=== PATIENT | male | born 1955 | race Caucasian/White ===

== ENCOUNTER 2016-06-16 10:59 | Emergency (ER) | payer BC ==
[~2016-06-16] VITALS: Ht 188 cm; Wt 112.0 kg
[2016-06-16 11:16] VITALS: BP 105/74; PULSE 97; RESP 16; TEMP 99.2; O2SAT 98
--- NOTE | 2016-06-16 14:28 | PD ---
HPI . Lower abdominal pain Chief Complaint: GI Complaint Time Seen by Provider: 14:19 Travel History International Travel<30 days: No Contact w/Intl Traveler<30days: No Traveled to known affect area: No History of Present Illness HPI Patient presents with lower abdominal pain and constipation for 3 days. He states he normally has several bowel movements per day but has not had one in 3 days. He reports suddenly worsening lower abdominal pain. He states that he has taken Metamucil and a stool softener at home with no relief of the constipation. He denies any associated fever. He denies anorexia. He denies any urinary symptoms. [id number]: Lower abdomen DURATION: 3 days TIMING: Gradually worsening MODIFYING FACTORS: Unrelieved by Metamucil and stool softener ASSOCIATED SYMPTOMS: Constipation PFSH Past Medical History Diabetes: Yes (TYPE 2) Social History Tobacco Use: No Allergies-Medications (Allergen,Severity, Reaction): Coded Allergies: No Known Allergies (Unverified , 06/16/16) Reported Meds & Prescriptions Reported Meds & Active Scripts Active Reported Metformin (Metformin HCl) Unknown Strength Tab Unknown Dose PO BIDPC With meals Review of Systems Except as stated in HPI: all other systems reviewed are Neg General / Constitutional: No: Fever, Chills Cardiovascular: No: Chest Pain or Discomfort Respiratory: No: Shortness of Breath Gastrointestinal: Positive: Abdominal Pain, Constipation, No: Nausea, Vomiting , Diarrhea, Loss of Appetite Genitourinary: No: Urgency, Frequency, Dysuria Physical Exam Narrative GENERAL: Healthy-appearing man in no acute distress. SKIN: Warm and dry. HEAD: Atraumatic. Normocephalic. EYES: Pupils equal and round. ENT: No nasal bleeding or discharge. Mucous membranes pink and moist. NECK: Trachea midline. Neck supple. CARDIOVASCULAR: Regular rate and rhythm. Heart sounds normal. RESPIRATORY: No accessory muscle use. Lungs clear. GASTROINTESTINAL: Abdomen soft, non-tender, nondistended. MUSCULOSKELETAL: No obvious deformities. No edema. NEUROLOGICAL: Awake and alert. No obvious cranial nerve deficits. Motor grossly within normal limits. Normal speech. PSYCHIATRIC: Appropriate mood and affect; insight and judgment normal. Data Data Last Documented VS Vital Signs Date Time Temp Pulse Resp B/P Pulse Ox O2 Delivery O2 Flow Rate FiO2 06/16/16 16:44 96 16 110/59 96 06/16/16 15:53 Room Air 06/16/16 11:16 99.2 Orders Complete Blood Count With Diff (06/16/16 14:24) Comprehensive Metabolic Panel (06/16/16 14:24) Urinalysis - C+S If Indicated (06/16/16 14:24) Abdomen, Flat & Upright (06/16/16 ) Iv Access Insert/Monitor (06/16/16 14:24) Ecg Monitoring (06/16/16 14:24) Oximetry (06/16/16 14:24) Sodium Chloride 0.9% Flush (Ns Flush) (06/16/16 14:30) Ct Abd/Pel W Iv Contrast(Rout) (06/16/16 15:58) Labs Laboratory Tests Test 06/16/16 06/16/16 15:00 15:02 White Blood Count 13.6 TH/MM3 Red Blood Count 5.49 MIL/MM3 Hemoglobin 15.2 GM/DL Hematocrit 45.4 % Mean Corpuscular Volume 82.7 FL Mean Corpuscular Hemoglobin 27.7 PG Mean Corpuscular Hemoglobin 33.5 % Concent Red Cell Distribution Width 12.7 % Platelet Count 309 TH/MM3 Mean Platelet Volume 7.7 FL Neutrophils (%) (Auto) 78.4 % Lymphocytes (%) (Auto) 11.5 % Monocytes (%) (Auto) 8.5 % Eosinophils (%) (Auto) 0.7 % Basophils (%) (Auto) 0.9 % Neutrophils # (Auto) 10.6 TH/MM3 Lymphocytes # (Auto) 1.6 TH/MM3 Monocytes # (Auto) 1.2 TH/MM3 Eosinophils # (Auto) 0.1 TH/MM3 Basophils # (Auto) 0.1 TH/MM3 CBC Comment DIFF FINAL Differential Comment Sodium Level 138 MEQ/L Potassium Level 3.8 MEQ/L Chloride Level 102 MEQ/L Carbon Dioxide Level 27.7 MEQ/L Anion Gap 8 MEQ/L Blood Urea Nitrogen 13 MG/DL Creatinine 0.87 MG/DL Estimat Glomerular Filtration 89 ML/MIN Rate Random Glucose 118 MG/DL Calcium Level 8.6 MG/DL Total Bilirubin 1.7 MG/DL Aspartate Amino Transf 12 U/L (AST/SGOT) Alanine Aminotransferase 24 U/L (ALT/SGPT) Alkaline Phosphatase 82 U/L Total Protein 7.2 GM/DL Albumin 3.6 GM/DL Urine Color YELLOW Urine Turbidity CLEAR Urine pH 5.5 Urine Specific [place] 1.028 Urine Protein TRACE mg/dL Urine Glucose (UA) NEG mg/dL Urine Ketones 15 mg/dL Urine Occult Blood TRACE Urine Nitrite NEG Urine Bilirubin NEG Urine Leukocyte Esterase NEG Urine RBC 3-5 /hpf Urine WBC 0-2 /hpf Urine Squamous Epithelial 0-5 /hpf Cells Urine Bacteria NONE /hpf Microscopic Urinalysis Comment CULT NOT INDICATED MDM Medical Decision Making Medical Screen Exam Complete: Yes Emergency Medical Condition: Yes Differential Diagnosis Differential diagnosis of abdominal pain includes but is not limited to gastritis, pancreatitis, hepatitis, gastroenteritis, gallbladder disease, constipation, urinary retention, UTI, peptic ulcer disease, diverticulitis or appendicitis Narrative Course Patient presents complaining with abdominal pain and constipation. He will be evaluated to rule out obstruction, UTI, etc. Laboratory Tests Test 06/16/16 06/16/16 15:00 15:02 White Blood Count 13.6 TH/MM3 Red Blood Count 5.49 MIL/MM3 Hemoglobin 15.2 GM/DL Hematocrit 45.4 % Mean Corpuscular Volume 82.7 FL Mean Corpuscular Hemoglobin 27.7 PG Mean Corpuscular Hemoglobin 33.5 % Concent Red Cell Distribution Width 12.7 % Platelet Count 309 TH/MM3 Mean Platelet Volume 7.7 FL Neutrophils (%) (Auto) 78.4 % Lymphocytes (%) (Auto) 11.5 % Monocytes (%) (Auto) 8.5 % Eosinophils (%) (Auto) 0.7 % Basophils (%) (Auto) 0.9 % Neutrophils # (Auto) 10.6 TH/MM3 Lymphocytes # (Auto) 1.6 TH/MM3 Monocytes # (Auto) 1.2 TH/MM3 Eosinophils # (Auto) 0.1 TH/MM3 Basophils # (Auto) 0.1 TH/MM3 CBC Comment DIFF FINAL Differential Comment Sodium Level 138 MEQ/L Potassium Level 3.8 MEQ/L Chloride Level 102 MEQ/L Carbon Dioxide Level 27.7 MEQ/L Anion Gap 8 MEQ/L Blood Urea Nitrogen 13 MG/DL Creatinine 0.87 MG/DL Estimat Glomerular Filtration 89 ML/MIN Rate Random Glucose 118 MG/DL Calcium Level 8.6 MG/DL Total Bilirubin 1.7 MG/DL Aspartate Amino Transf 12 U/L (AST/SGOT) Alanine Aminotransferase 24 U/L (ALT/SGPT) Alkaline Phosphatase 82 U/L Total Protein 7.2 GM/DL Albumin 3.6 GM/DL Urine Color YELLOW Urine Turbidity CLEAR Urine pH 5.5 Urine Specific [place] 1.028 Urine Protein TRACE mg/dL Urine Glucose (UA) NEG mg/dL Urine Ketones 15 mg/dL Urine Occult Blood TRACE Urine Nitrite NEG Urine Bilirubin NEG Urine Leukocyte Esterase NEG Urine RBC 3-5 /hpf Urine WBC 0-2 /hpf Urine Squamous Epithelial 0-5 /hpf Cells Urine Bacteria NONE /hpf Microscopic Urinalysis Comment CULT NOT INDICATED Because of the elevated white blood count, I have ordered a CT. CT does show diverticulitis. No evidence of perforation or abscess. Diagnosis Primary Impression: Abdominal pain Qualified Code: R10.30 - Lower abdominal pain Additional Impression: Diverticulitis large intestine w/o perforation or abscess w/o bleeding Patient Instructions: Diverticulitis (DC), General Instructions Med/Other Pt SpecificInfo: Prescription(s) given Scripts Hydrocodone-Acetaminophen ([place])5-325 mg Tab1 Tab PO Q4H PRN (PAIN) #12 TAB Ref 0 Prov:Shobha Jorge MD 06/16/16 Metronidazole (Flagyl)500 Mg Hen648 Mg PO BID 7 Days Ref 0 Prov:Shobha Jorge MD 06/16/16 Ciprofloxacin (Cipro)500 Mg [id number] Mg PO BID 10 Days Ref 0 Prov:Shobha Jorge MD 06/16/16 Disposition: 01 DISCHARGE HOME Condition: Stable Shobha Jorge MD Jun 16, 2016 14:27
[2016-06-16] MEDS ORDERED: SODIUM CHLORIDE 0.9% FLUSH 5 ML FLUSH IVF PRN (14:30)
[2016-06-16] MEDS ORDERED: METF500T PO (14:40)
--- NOTE | 2016-06-16 15:07 | RADHPO ---
EXAM DATE/TIME: 06/16/2016 14:35 [facility] COMPARISON: No previous studies available for comparison. INDICATIONS : Abdominal pain and constipation MEDICAL HISTORY : None. SURGICAL HISTORY : Left side hernia repair ENCOUNTER: Initial ACUITY: 2 days PAIN SCORE: 3/10 LOCATION: Bilateral Abdomen FINDINGS: Supine and upright views of the abdomen were performed. The abdominal bowel gas pattern is normal. No air fluid levels are seen. No abnormal masses, calcifications, or organomegaly is seen. The visu alized lower lungs are clear. No evidence of free intraperitoneal gas. The osseous structures are u nremarkable. CONCLUSION: Normal examination. Collin Mao Jr., MD on June 16, 2016 at 15:04 Board Certified Radiologist. This report was verified electronically.
[2016-06-16 15:21] LABS: AUTOMATED NEUTROPHIL # 10.6 TH/MM3 (1.8-7.7); BASOPHIL # 0.1 TH/MM3 (0-0.2); BASOPHIL % 0.9 % (0.0-2.0); EOSINOPHIL # 0.1 TH/MM3 (0-0.4); EOSINOPHIL % 0.7 % (0.0-4.0); HEMATOCRIT 45.4 % (39.0-51.0); HEMO FLAGS DIFF FINAL; LYMPH % 11.5 % (9.0-44.0); LYMPHOCYTE # 1.6 TH/MM3 (1.0-4.8); MEAN CELL VOLUME 82.7 FL (80.0-100.0); MEAN CORPUSCULAR HEMOGLOBIN 27.7 PG (27.0-34.0); MEAN CORPUSCULAR HGB CONC 33.5 % (32.0-36.0); MONO % 8.5 % (0.0-8.0); NEUT % 78.4 % (16.0-70.0); PLATELET COUNT 309 TH/MM3 (150-450); RED BLOOD COUNT 5.49 MIL/MM3 (4.50-5.90); RED CELL DISTRIBUTION WIDTH 12.7 % (11.6-17.2); WHITE BLOOD COUNT 13.6 TH/MM3 (4.0-11.0)
[2016-06-16 15:41] LABS: BLOOD, URINE TRACE (NEG); GLUCOSE,URINE NEG (NEG); KETONE, URINE 15 mg/dL (NEG); NITRITE,URINE NEG (NEG); PH, URINE 5.5 (5.0-8.5)
[2016-06-16 15:47] LABS: SQUAMOUS EPITHELIAL CELL URINE 0-5 /hpf (0-5); URINE COLOR YELLOW (YELLW/STRAW); WBC, URINE 0-2 /hpf (0-5)
[2016-06-16 15:48] LABS: COMMENT (UR) CULT NOT INDICATED; CULTURE IF INDICATED CULT NOT INDICATED
[2016-06-16 15:51] LABS: ALKALINE PHOSPHATASE 82 U/L (45-117); ALT (GPT) 24 U/L (12-78); AST (GOT) 12 U/L (15-37); BLOOD UREA NITROGEN 13 MG/DL (7-18); GLOMERULAR FILTRATION RATE 89 ML/MIN (>89); SODIUM (NA) 138 MEQ/L (136-145); TOTAL BILIRUBIN ADULT 1.7 MG/DL (0.2-1.0)
[2016-06-16 15:52] LABS: ANION GAP 8 MEQ/L (5-15); BICARBONATE 27.7 MEQ/L (21.0-32.0); CHLORIDE 102 MEQ/L (98-107); POTASSIUM 3.8 MEQ/L (3.5-5.1)
[2016-06-16 15:53] VITALS: O2SAT 98
[2016-06-16 16:44] VITALS: BP 110/59; PULSE 96; RESP 16; O2SAT 96
--- NOTE | 2016-06-16 18:10 | RADHPO ---
EXAM DATE/TIME: 06/16/2016 17:12 [facility] COMPARISON: No previous studies available for comparison. INDICATIONS : Lower pelvic pain, constipation. IV CONTRAST: 93 cc Omnipaque 350 (iohexol) IV ORAL CONTRAST: No oral contrast ingested. RADIATION DOSE: 22.17 CTDIvol (mGy) MEDICAL HISTORY : Diabetes mellitus type 2. SURGICAL HISTORY : Inguinal hernia repair. ENCOUNTER: Initial ACUITY: 1 day PAIN SCALE: 4/10 LOCATION: pelvis TECHNIQUE: Volumetric scanning of the abdomen and pelvis was performed. Using automated exposure control and adjustment of the mA and/or kV according to patient size, radiation dose was kept as low as reasonably achievable to obtain optimal diagnostic quality images. FINDINGS: There is area of thickening of the proximal sigmoid colon. There is a prominent divert icula measuring 1.4 cm surrounded by inflammatory change. There is some scattered other diverticula seen in the descending and sigmoid portions of the colon without inflammatory change. The inflammato ry change does extend into the left parcolic gutter and left pelvic sidewall region. There are several hyperdensities seen in the liver measuring up to 1.5 cm. These likely represent sma ll cysts or hemangiomas. They are nonspecific. The spleen, pancreas, adrenal glands and kidneys are unremarkable. The IVC and aorta appear grossly intact. The pelvic structures appear grossly intact . There is some minimal suspected atelectasis at the anterior right lower lobe and at the posterior left lower lobe. CONCLUSION: 1. Diverticulitis involving the proximal descending colon. A drainable abscess is not present. Ther e is prominent inflammatory change seen around the proximal sigmoid colon and extending into the left paracolic gutter and left pelvic sidewall regions. 2. Multiple hyperdensities in the liver. These are nonspecific but likely represent cysts or hemangi omas. They could be further evaluated at some point with an MRI examination of the abdomen. This cou ld be performed as an outpatient. Chris Shen MD on June 16, 2016 at 17:52 Board Certified Radiologist. This report was verified electronically.
[2016-06-16] MEDS ORDERED: CIPR-9 PO (18:16)
[2016-06-16] MEDS ORDERED: METR-1 PO (18:16)
[2016-06-16] MEDS ORDERED: NORC5TAB PO (18:16)
[2016-06-16] MEDS ORDERED: IOHEXOL 350 MG/ML 10 ML VIAL (for RAD DIAG) IV ONE (23:00)
== END 2016-06-16 18:50 | disposition home or self-care (01) ==
LOC: PHED 10:59
DX: K57.32 Diverticulitis of large intestine without perforation or abscess without bleeding (principal); K59.00 Constipation, unspecified; E11.9 Type 2 diabetes mellitus without complications; Z79.4 Long term (current) use of insulin
CPT/HCPCS: 74020; 74177; 80053; 81001; 85025; 99284; Q9967